=== PATIENT | female | born 1965 | race Asian ===

== ENCOUNTER → 2022-10-20 10:31 | Outpatient (CLI) | payer BC, SELFPAY ==
--- NOTE | 2022-10-20 | DI.NM.S_ITS ---
PROCEDURE: NM BONE SCAN WHOLE BODY RADIOPHARMACEUTICAL: 20.0 mCi Tc-99m MDP IV. INDICATIONS: LEFT BREAST CANCER TECHNIQUE: Delayed whole-body scintigrams were obtained approximately 3-4 hours after intravenous injection of radiotracer. Anterior and posterior views were acquired from vertex to feet. Additional left and right oblique views of the chest were obtained. COMPARISON: None. FINDINGS: Degenerative uptake of radiotracer at the acromioclavicular and glenohumeral joints, hip, knee, ankle, and mid feet. No increased radiotracer uptake to indicate metastatic disease IMPRESSION: No evidence of metastatic disease. Dictated by: Rhonda Basilio M.D. on 10/20/2022 at 16:18 Transcribed by: GIO on 10/20/2022 at 16:20 Approved by: Rhonda Basilio M.D. on 10/20/2022 at 16:41
== END ==
PROVIDERS: Referring Provider Internal Medicine Hematology & Oncology; Visit Provider Internal Medicine Hematology & Oncology
DX: C50.912 Malignant neoplasm of unspecified site of left female breast (principal)
CPT/HCPCS: 78306; A9503